=== PATIENT | female | born 1965 | race Caucasian/White ===

== ENCOUNTER → 2021-02-17 13:09 | Outpatient (CLI) | payer OTHER, SELFPAY ==
[2021-02-17 17:52] LABS: COVID19 -Nasal RAPID Negative (Negative)
== END ==
PROVIDERS: Visit Provider Physician Assistant
DX: Z01.812 Encounter for preprocedural laboratory examination (principal); Z20.822 Contact with and (suspected) exposure to COVID-19
CPT/HCPCS: 87635

== ENCOUNTER 2021-02-18 06:44 | Day surgery (SDC) | payer OTHER, SELFPAY ==
[2021-02-18 07:17] VITALS: BP 180/82; PULSE 74; RESP 20; TEMP 36.6; O2SAT 98; BMI 37.2
--- NOTE | 2021-02-18 07:36 | PM.HP.1 ---
History of Present Illness History of Present Illness Date Patient Seen: 02/18/21 Time Patient Seen: 07:52 Chief complaint: SDC Narrative: Here for EGD and colonoscopy I reviewed the note by Dr. Banegas no changes. Patient History Family & Social History Social History: household members significant other Tobacco & Substance use: Smoking Status Former smoker alcohol intake former Substance Use Type does not use Meds Home Medications and Allergies Home Medications Medication Instructions Recorded Confirmed Type amlodipine 5 mg tablet 5 mg PO BID 02/18/21 02/18/21 History apixaban 5 mg tablet (Eliquis) 5 mg PO BID 02/18/21 02/18/21 History atorvastatin 20 mg tablet 20 mg PO DAILY 02/18/21 02/18/21 History furosemide 40 mg tablet (Lasix) 40 mg PO DAILY 02/18/21 02/18/21 History glimepiride 2 mg tablet 2 mg PO BID 02/18/21 02/18/21 History isosorbide mononitrate 30 mg 30 mg PO DAILY 02/18/21 02/18/21 History tablet,extended release 24 hr peg-electrolyte solution 420 gram ml 02/18/21 History oral solution Allergies Allergy/AdvReac Type Severity Reaction Status Date / Time cephalexin [From Keflex] Allergy Verified 02/18/21 07:26 Penicillins Allergy Verified 02/18/21 07:26 Review of Systems Review of Systems ROS: Yes All systems reviewed with the patient and are negative except as otherwise documented Exam Vital Signs (past 8 hours): - 02/18/21 07:17 Temperature 97.9 F Pulse Rate 74 Respiratory Rate 20 Blood Pressure 180/82 H Pulse Oximetry 98 Oxygen Delivery Method Room Air Const General: cooperative and comfortable Orientation: alert [facility] Head: normocephalic Ears: external ears normal Nose: external nose normal Face and sinus: normal facial exam Mouth: oral mucosae normal Eyes General: appearance normal, both eyes and all related structures Neck Neck: normal visual inspection Chest Chest: normal inspection of the chest Resp Effort & Inspection: normal respiratory effort Auscultation: clear to auscultation bilaterally Cardio Rate: regular rate Rhythm: regular rhythm Heart Sounds: no murmurs GI Inspection: normal to inspection Palpation: soft and No tender Auscultation: normal bowel sounds Skin General: no rashes or lesions noted and No jaundice Neuro General: patient alert and moves all extremities Cognition: normal cognition Speech: speech normal Extrem General: edema Psych Appearance: grossly normal Assessment & Plan Assessment & Plan narrative: 55-year-old female with cirrhosis. She is indicated for colon cancer screening and variceal screening. EGD and colonoscopy are pursued today. Time Spent With Patient Critical Care time: I spent a total of [] minutes of critical care time on this patient's care today; this time is exclusive of procedural time.
[2021-02-18] MEDS: SODIUM CHLORIDE 0.9% 1,000 ML 100 ML IV (07:41)
--- NOTE | 2021-02-18 07:55 | PM.PREOP ---
Pre-operative Note COVID-19 COVID-19 status: Negative Result date/Date tested (Pos, Neg/Pending): 02/17/21 Interval Note History & Physical reviewed/Exam performed by Physician: Yes Changes to H&P: No ASA Class (for procedural sedation): III
--- NOTE | 2021-02-18 08:33 | PM.OP.EC ---
Operative Date/Time/Diagnoses Date of procedure: 02/18/21 Time of procedure: 08:33 Pre-op diagnosis: Cirrhosis variceal screening colon cancer screening. Post-op diagnosis: same Procedure & Clinicians Study performed: EGD and colonoscopy Same procedure as scheduled: Yes Indications: Cirrhosis variceal screening colon cancer screening. Surgeon: Arjun Wayne Procedure Notes SCOAP/Timeout: Done Procedure in detail: After the risks and benefits were explained, written and verbal informed consent was obtained. The patient was brought into the procedure room and placed into the left lateral decubitus position. Conscious sedation medication was applied as per nursing documentation. The scope was introduced into the mouth through the bite block and advanced under direct visualization to the 2nd portion of the duodenum. The scope was slowly withdrawn carefully examining the mucosa for any defects or lesions. Retroflexed views were accomplished in the stomach. The stomach was decompressed, the scope was then removed from the patient who tolerated the procedure well. Patient was then turned around a digital rectal examination accomplished the scope was introduced into the rectum and advanced to the the cecum as identified by the appendiceal orifice and ileocecal valve. The scope was slowly withdrawn to carefully examine the mucosa for any defects or lesions. Multiple direct views were made through the dentate line for exclusion of pathology colon was decompressed scope removed from the patient who tolerated the procedure well. Adult colonoscope Bowel prep adequate Scope withdrawal time: 8 minutes Sedation minutes: 25 Specimen(s): none sent Complications: none Impression: 1. Duodenum this is visually normal from the bulb through to the 2nd portion. 2. Stomach: No ulcers no outlet obstruction no mucosal mass lesions no varices including retroflexed views of the LES. 3. Esophagus: No varices. GEJ was at 38 cm from the incisors. No esophagitis strictures or mass lesions. 4. Colon: There was some mild diverticulosis in the sigmoid. There is an approximately 1-1/2 cm classic submucosal lipoma in the ascending colon. A patient had evidence of grade 2 nonthrombosed nonbleeding internal hemorrhoids. The anal canal was devoid of any mass lesion. There was a sense of mild fibrosis anteriorly. There is a slight distinct area of hemorrhoidal mucosa that appeared a little more organized than the remainder of the anal canal this was photographed. Endoscopic diagnosis 1. No esophageal varices 2. Visually unremarkable EGD 3. Diverticulosis 4. Grade 2 hemorrhoids 5. Irregular anal mucosa Post-procedure Recommendations: Colonscopy in 10 years Plan for aftercare: 1. Continue GI clinic follow-up on a regular basis with liver cancer screening every 6 months. 2. Repeat EGD in 2 years. 3. Repeat colonoscopy 10 years time sooner should symptoms warrant an earlier exam 4. Follow-up in surgery Clinic for evaluation of the anal mucosa and likely biopsy. Disposition: PACU
[2021-02-18 08:35] VITALS: BP 141/72; PULSE 63; RESP 20; TEMP 36.7; O2SAT 97
[2021-02-18 08:40] VITALS: BP 151/76; PULSE 68; RESP 12; O2SAT 97
[2021-02-18 08:45] VITALS: BP 135/82; PULSE 65; RESP 14; O2SAT 99
--- NOTE | 2021-02-18 08:47 | SUR.PHASEI ---
Patient drinking juice, sitting up, denies any pain or nausea; provider at bedside speaking to patient. Abdomen soft and non-distended.
[2021-02-18 08:55] VITALS: BP 149/70; PULSE 68; RESP 16; O2SAT 98
== END 2021-02-18 09:04 | disposition home or self-care (01) ==
PROVIDERS: Referring Provider Internal Medicine Gastroenterology; Visit Provider Internal Medicine Gastroenterology
PROC: 0DJ08ZZ Inspection of Upper Intestinal Tract, Via Natural or Artificial Opening Endoscopic (ICD-10-PCS; CPT 43235; principal; 2021-02-18 08:00)
PROC: 0DJD8ZZ Inspection of Lower Intestinal Tract, Via Natural or Artificial Opening Endoscopic (ICD-10-PCS; CPT 45378; 2021-02-18 08:00)
DX: Z12.11 Encounter for screening for malignant neoplasm of colon (principal); K70.30 Alcoholic cirrhosis of liver without ascites; K57.30 Diverticulosis of large intestine without perforation or abscess without bleeding; D17.79 Benign lipomatous neoplasm of other sites; K64.1 Second degree hemorrhoids
CPT/HCPCS: 43235; 45378; J2704

== ENCOUNTER 2023-05-26 09:59 | Day surgery (SDC) | payer OTHER, SELFPAY ==
--- NOTE | 2023-05-26 11:24 | PM.HP.1 ---
History of Present Illness History of Present Illness Date Patient Seen: 05/26/23 Chief complaint: EGD Narrative: History of cirrhosis with need for screening for esophageal varices [facility] Medical History (Updated 05/26/23 @ 11:03 by Kristy Russell RN) Heart disease HTN (hypertension) Anemia Cirrhosis Diabetes Social History household members: significant other Smoking Status: Former smoker alcohol intake: former Meds Home Medications and Allergies Home Medications Medication Instructions Recorded Confirmed Type amlodipine 5 mg tablet 5 mg PO BID 02/18/21 02/18/21 History apixaban 5 mg tablet (Eliquis) 5 mg PO BID 02/18/21 02/18/21 History atorvastatin 20 mg tablet 20 mg PO DAILY 02/18/21 02/18/21 History furosemide 40 mg tablet (Lasix) 40 mg PO DAILY 02/18/21 02/18/21 History glimepiride 2 mg tablet 2 mg PO BID 02/18/21 02/18/21 History isosorbide mononitrate 30 mg 30 mg PO DAILY 02/18/21 02/18/21 History tablet,extended release 24 hr peg-electrolyte solution 420 gram ml 02/18/21 History oral solution Allergies Allergy/AdvReac Type Severity Reaction Status Date / Time cephalexin [From Keflex] Allergy Verified 02/18/21 07:26 Penicillins Allergy Verified 02/18/21 07:26 Exam Narrative Exam Narrative: Oropharynx free of lesions Chest clear to auscultation percussion Cardiac exam reveals no S3 or murmur Assessment & Plan Assessment & Plan narrative: History of cirrhosis with need for screening for esophageal varices. Risks, benefits, alternatives have been explained.
--- NOTE | 2023-05-26 11:25 | PM.OP.EGD ---
Operative Date/Time/Diagnoses Date of procedure: 05/26/23 Pre-op diagnosis: See indication and findings Procedure & Clinicians Study performed: EGD Indications: Screen for esophageal varices previously negative Surgeon: Lauryn Virk Procedure Notes Procedure in detail: After informed consent was obtained the patient was placed in left lateral decubitus position. The video upper scope was placed into the oropharynx and with the patient's help swallowed into the esophagus. The esophagus stomach and duodenum were carefully examined. On withdrawal, retroflexed view the GE junction was performed. The scope was removed. The patient tolerated procedure well. Blood loss none Complications none Sedation mac Findings 1. Normal esophagus 2. Normal stomach 3. Normal duodenum Ana should have follow-up EGD for screening purposes in 1 year.
[2023-05-26 11:43] VITALS: BP 192/81; PULSE 57; RESP 16; TEMP 36.3; O2SAT 99
[2023-05-26] MEDS: LACTATED RINGERS 1,000 ML 42 ML IV (11:50)
[2023-05-26 12:17] VITALS: BP 151/73; PULSE 52; RESP 12; TEMP 36.7; O2SAT 94
[2023-05-26 12:23] VITALS: BP 171/76; PULSE 59; RESP 14; O2SAT 94
[2023-05-26 12:30] VITALS: BP 176/66; PULSE 73; RESP 16; TEMP 36.6; O2SAT 92
== END 2023-05-26 12:43 | disposition home or self-care (01) ==
PROVIDERS: PCP Physician Assistant Medical; Referring Provider Internal Medicine Gastroenterology; Visit Provider Internal Medicine Gastroenterology
PROC: 0DJ08ZZ Inspection of Upper Intestinal Tract, Via Natural or Artificial Opening Endoscopic (ICD-10-PCS; CPT 43235; principal; 2023-05-26 11:30)
DX: Z87.19 Personal history of other diseases of the digestive system (principal)
CPT/HCPCS: 43235; J2704; J3010